=== PATIENT | female | born 1930 | race Two or more races ===

== ENCOUNTER 2020-11-20 11:35 | Outpatient (CLI) | payer OTHER | END 2020-11-20 15:00 | disposition home or self-care (01) | LOC: PPH VACUNA 11:35 | PROVIDERS: ATTEND Emergency Medicine Pediatric Emergency Medicine | DX: Z23 Encounter for immunization (principal) ==

== ENCOUNTER 2020-12-11 09:47 | Outpatient (CLI) | payer OTHER | END 2020-12-11 09:48 | disposition home or self-care (01) | LOC: PPH VACUNA 09:47 | PROVIDERS: ATTEND Emergency Medicine Pediatric Emergency Medicine | DX: Z23 Encounter for immunization (principal) ==

== ENCOUNTER → 2021-07-07 15:00 | Outpatient (CLI) | payer OTHER | END | disposition home or self-care (01) | LOC: PPH VACUNA 15:00 | DX: Z23 Encounter for immunization (principal) ==

== ENCOUNTER 2022-02-11 08:00 | Outpatient (CLI) | payer OTHER | END 2022-02-11 08:30 | disposition home or self-care (01) | LOC: PPH VACUNA 08:00 | PROVIDERS: ATTEND Emergency Medicine Pediatric Emergency Medicine | DX: Z23 Encounter for immunization (principal) ==

== ENCOUNTER 2022-07-29 12:52 | Outpatient (CLI) | payer OTHER | END 2022-07-29 13:02 | disposition home or self-care (01) | LOC: PPH VACUNA 12:52 | PROVIDERS: ATTEND Emergency Medicine Pediatric Emergency Medicine | DX: Z23 Encounter for immunization (principal) ==